=== PATIENT | female | born 1985 | race Caucasian/White ===

== ENCOUNTER 2017-01-17 09:43 | Outpatient (CLI) | payer OTHER ==
[~2017-01-17] VITALS: Ht 177.8 cm; Wt 66.7 kg
[2017-01-17] MEDS ORDERED: PRILOSEC OTC20 MG PO (11:16)
[2017-01-18] MEDS ORDERED: TYLENOL W/CODEIN1 E1 PO (10:33)
== END 2017-01-18 11:48 | disposition home or self-care (01) ==
LOC: CATH 09:43 → PROG CARE 18:50 → CATH 01-18 11:48
DX: I47.1 Supraventricular tachycardia (principal); S30.1XXA Contusion of abdominal wall, initial encounter; F17.210 Nicotine dependence, cigarettes, uncomplicated; F41.9 Anxiety disorder, unspecified; J30.9 Allergic rhinitis, unspecified; Z88.0 Allergy status to penicillin; D64.9 Anemia, unspecified; K21.9 Gastro-esophageal reflux disease without esophagitis; I10 Essential (primary) hypertension; M32.9 Systemic lupus erythematosus, unspecified; Z79.899 Other long term (current) drug therapy; F32.9 Major depressive disorder, single episode, unspecified; Z87.19 Personal history of other diseases of the digestive system; Z87.442 Personal history of urinary calculi; Z86.69 Personal history of other diseases of the nervous system and sense organs
CPT/HCPCS: 36415; 80048; 84703; 85025; 85347; 93005; 93609; 93620; 93621; 93623; 93655; C1730; C1733; C1766; J1200; J1644; J2250; J2270; J2405; J3010; J7040; Q9962; Q9963

== ENCOUNTER → 2022-02-22 | Outpatient (CLI) | payer OTHER ==
[~2022-02-22] MED LIST: COLACE 100MG C100 MG PO; PRILOSEC OTC20 MG PO; TYLENOL W/CODEIN1 E1 PO
== END ==
LOC: US 02-20 10:00
DX: M79.89 Other specified soft tissue disorders (principal)
CPT/HCPCS: 93971